=== PATIENT | female | born 1955 | race Hispanic/Latino ===

== ENCOUNTER → 2024-11-02 | Outpatient (CLI) | payer OTHER ==
[2024-11-02 21:36] VITALS: PULSE 64; RESP 16
[2024-11-02 22:00] VITALS: PULSE 64; RESP 20
[2024-11-02 22:30] VITALS: PULSE 68; RESP 16
[2024-11-02 23:00] VITALS: PULSE 64; RESP 18
[2024-11-02 23:30] VITALS: PULSE 68; RESP 18
[2024-11-03] VITALS (9 sets, daily range): PULSE 54–72; RESP 12–20
== END | disposition home or self-care (01) ==
LOC: SLP 19:53
PROVIDERS: ATTEND Family Medicine
DX: G47.30 Sleep apnea, unspecified (principal)
CPT/HCPCS: 95810